=== PATIENT | female | born 1995 | race Caucasian/White ===

== ENCOUNTER 2021-07-18 14:22 | Emergency (ER) | payer OTHER ==
[2021-07-18 17:43] LABS: BASOPHIL 0.4 % (0-2); EOSINOPHIL 0 % (0-5); HCT 43.9 % (37.0-47.0); HGB 14.7 g/dl (12.5-16.0); LYMPHOCYTE 32.2 % (15-48); MCH 27.4 pg (25.0-31.0); MCHC 33.5 g/dL (32.0-36.0); MCV 81.9 fL (78.0-100.0); MONOCYTE 6.6 % (0-12); MPV 11.2 fL (6.0-9.5); NEUTROPHIL 60.6 % (41-80); NRBC 0; PLT 219 K/uL (150-400); RBC 5.36 M/uL (4.20-5.40); RDW 13.1 % (11.5-14.0); WBC 4.9 K/uL (4.0-10.5)
[2021-07-18 17:53] LABS: BILIRUBIN 1+ mg/dL (NEGATIVE); BLOOD 2+ Ery/uL (NEGATIVE); CLARITY CLEAR (CLEAR); COLOR YELLOW (YELLOW); GLUCOSE (U) NORMAL (NORMAL); NITRITE NEGATIVE (NEGATIVE); PROTEIN 2+ mg/dL (NEGATIVE); SPECIFIC GRAVITY 1.025 (1.001-1.030); UROBILINOGEN 0.2 mg/dL (0.2-1.0)
[2021-07-18 17:54] LABS: LEUKOCYTES NEGATIVE Leu/uL (NEGATIVE)
[2021-07-18 17:55] LABS: BACTERIA TRACE; MUCOUS MODERATE; URINARY RBC RARE
[2021-07-18 18:00] LABS: CREATININE 0.54 mg/dL (0.51-0.95); POTASSIUM 3.5 mmol/L (3.5-5.1)
[2021-07-18] MEDS ORDERED: ZOFRAN4 M1 PO (21:20)
[2021-07-18] MEDS ORDERED: VENTOLIN HFA IN18 GM INH (21:20)
== END 2021-07-18 22:01 | disposition home or self-care (01) ==
LOC: FER 14:22
PROVIDERS: Nurse Practitioner Family
DX: U07.1 COVID-19 (principal); E66.9 Obesity, unspecified; Z23 Encounter for immunization; Z88.0 Allergy status to penicillin
CPT/HCPCS: 36415; 71045; 71275; 80048; 81001; 85025; 85379; J7030; M0245; Q0245; Q9967